=== PATIENT | female | born 2000 | race Asian ===

== ENCOUNTER 2024-07-01 00:06 | Emergency (ER) | payer BC, SELFPAY ==
--- OUTSIDE RECORDS SUMMARY | 2024-07-01 00:09 | XMS_ITS | Clinical Summary ---
Author Organization [facility] Address [address] [place] [address] Care Team Providers Care Manager Membership Name Role Phone Dedra Miller PA-C Primary Care Provider [phone] Source Comments You are receiving this document as you are listed as the primary care provider,follow-up provider, or the patient has been referred to you for consultation.This is in compliance with the Medicare and[facility] E[facility] Incentive Program,which states Providers who transition their patient to another setting of careor provider of care or refers their patient to another provider of care shouldprovide summary care record for each transition of care or referral. [facility] Allergies Active Allergy Reactions Criticality Noted Date Comments Swain Flavoring Agent (Non-Screening) Hives High 10/13/2018 Medications CALCIUM-MAGNESIUM OR Active intra-uterine copper contraceptive ([id number]) deviceIndications :Encounter for insertion of intrauterine contraceptive device 1 Device by Intrauterine route continuous. 1 Each 10/10/19 22 032 Active Multiple Vitamin (MULTI VITAMIN) TABS 1 tablet Orally Once a day for 30 day(s) Active cholecalciferol (VITAMIN D3) 1.25 MG (55707 UT) capsuleIndication s:Vitamin D deficiency (HRC) Take 1 Capsule (50,000 Units) by mouth once every week. 4 Capsule 03/05/20 23 Active Active Problems Problem Noted Date Diagnosed Date Adopted 02/02/2023 Encounter for insertion of i ntrauterine contraceptive device 10/09/2021 Overview (10/09/2021): Paragard placed 10/09/2021 Anxiety 08/29/2021 Wears contact lenses 10/13/2018 Immunizations Immunization Administration Dates Next Due 9vHPV (Gardasil 9) 01/11/2016,12/19/2014 Bexsero (Meningococcal Group B Vaccine) 10/08/2020,09/06/2020 DTaP 01/13/2007, 4,07/12/2003,2003,01/18/2003 Flu Vac (3+ yrs) 01/16/2006 Flu Vac (6-35 mo) 08/14/2005 Flu Vac Preserv Free (3+yrs) 12/25/2011, 12/26/2010,12/14/2009,2008,01/13/2008,01/07/2007 [id number] 03/29/2009 HepA Ped/Adol (1-18 yrs) 01/13/2007,08/14/2005 Hib (ActHIB) 04/12/2003 Hib, Unspecified Formulation 04/12/2003 Hib/HBV 07/12/2003, 4,2002,2001 IPV (Polio) 01/13/2007, 4,04/12/2003,2002 Influenza (Flucelvax) 12/30/2021,11/29/2020 Influenza (Flucelvax), Prese rv Free QIV 11/29/2022,09/05/2005 Influenza IIV4 (Quadrivalent ) 0.5mL (24310) 12/21/2019,01/18/2018,01/19/2017,2015,12/19/2014,12/23/2013,12/24/2012 Influenza LAIV (Nasal, 2-49 yrs) 12/23/2013,12/07 MCV4 Menveo 2m.+ (two vial) 01/18/2018, 4 MMR 08/14/2005,01/18/2003 Moderna Bivalent 12+ 11/20/2021 Moderna Monovalent 12+ 02/12/2021,07/16/2020,02/2021 PCV13 (Prevnar) 04/12/2003,01/18/2003 Pneumococcal 7, PED 04/12/2003,01/18/2003 TB Skin Test (PPD) 09/04/2020 TDAP (BOOSTRIX) 12/24/2012 Tdap 02/02/2023 Typhoid (Typhim Vi, IM) 09/16/2005 Typhoid, Unspecified Formulation 09/16/2005 Varicella 01/13/2007,02/06/2004 Social History Tobacco Use Types Packs/Day Years Used Date Smoking Tobacco: Never Smokeless Tobacco: Never Tobacco Cessation:Counseling Given: Not Answered Alcohol Use Standard Drinks/Week Comments Yes 0 (1 standard drink = 0.6 oz pur e alcohol) AUDIT-C Answer Date Recorded Frequency of Alcohol Consumption Never 10/13/2018 Average Number of Drinks Not on file 019 Frequency of Binge Drinking Not on file 09/2018 PHQ-2 Answer Date Recorded PHQ-2 Score 2 02/02/2023 Financial Resource Strain Answer Date R ecorded Is it hard for you to pay fo r the very basics like food, housing, medical care or heating? No 02/02/2023 Food Insecurity Answer Date Recorded Does your food run out before you have the money to buy more? No 02/02/2023 Transportation Needs Answer Date Record ed Does a lack of transportatio n keep you from your medical appointments or from getting your medications? No 023 Comments No Sex and Gender Information Value Date Recorded Sex Assigned at Not on file Legal Sex Female 5:51 AM CDT Gender Identity Not on file Sexual Orientation Not on file Last Filed Vital Signs Vital Sign Reading Time Taken Comments Blood Pressure 123/75 02/02/2023 10:41 AM DIRECTOR PHYSICAL Pulse 71 02/02/2023 10:41 AM DIRECTOR PHYSICAL Temperature 37.1 C (98.8 F) 10/13/2018 1:19 PM CDT Respiratory Rate - - Oxygen Saturation - - Inhaled Oxygen Concentration - - Weight 59 kg (130 lb) 03/04/2023 12:29 PM DIRECTOR PHYSICAL pt reported Height 160 cm (5' 3) 02/02/2023 10:41 AM DIRECTOR PHYSICAL Body Mass Index 23.03 02/02/2023 10:41 AM DIRECTOR PHYSICAL Plan of Treatment Health Maintenance Due Date Last Done Comments Cervical Cancer Screening Due 2002 Hep C Screening (Preventive Services) 2002 Tuberculosis Screening 2002 Hep B Screening ([employer]) 2003 COVID-19 Vaccine ( season) 2023 11/20/2021, 02/12/2021, 07/16/2020, Additional history exists Influenza Vaccine (#1) 2023 , 12/30/2021, 11/29/2020, Additional history exists Adult Preventive Visit 02/03/2024 02/02/2023, 2018 Chlamydia 02/03/2024 02/02/2023, 10/09/2021 DTaP/Tdap/Td Vaccine (8 - Tdap) 02/02/2033 02/02/2023, 12/24/2012, 01/13/2007, Additional history exists Zoster/Shingles Vaccine (1 of 2) 01/09/2052 Pneumococcal Vaccine Aged Out 04/12/2003, 04/12/2003, 01/18/2003, Additional history exists No longer eligible based on patient's age to complete this topic HepB Vaccine Completed 07/12/2003, 07/2003, 2002, Additional history exists Hib Vaccine Completed 07/12/2003, 07/2003, 04/12/2003, Additional history exists HepA Vaccine Completed 01/13/2007, 08/14/2005 IPV (Polio) Vaccine Completed 01/13/2007, 02/06/2004, 04/12/2003, Additional history exists Varicella Vaccine Completed 01/13/2007, 02/06/2004 HPV Vaccine Completed 01/11/2016, 12/19/2014 MCV4 Vaccine Completed 01/18/2018, 12/23/2013 Meningococcal B Vaccine Completed 10/08/2020, 09/06 HIV Screening (Preventive Services) Completed 02/02/2023 Procedures Procedure Name Priority Date/Time Associated Diagnosis Comments CHLAMYDIA & GC, URINE (14 YEARS AND OLDER) Routine 02/02/2023 11:35 AM DIRECTOR PHYSICAL Routine screening for STI (sexually transmitted infection) HIV 1/2 AG/AB 4TH GEN Routine 02/02/2023 11:13 AM DIRECTOR PHYSICAL Screening for HIV (human immunodeficiency virus) from Last 3 Months or Most Recently Relevant to Health Maintenance Results * Chlamydia & GC, Urine (14 Years and Older) (02/02/2023 11:35 AM DIRECTOR PHYSICAL) Chlamydia Trachomatis STD Not Detected Not Detected 02/02/2023 9:04 PM DIRECTOR PHYSICAL [facility] N. gonorrhoeae STD Not Detected Not Detected 02/02/2023 9:04 PM DIRECTOR PHYSICAL [facility] Urine STD (Urine for STD) Non-blood Collection / Unknown 02/02/2023 11:35 AM DIRECTOR PHYSICAL 02/02/2023 11:49 AM DIRECTOR PHYSICAL Narrative [facility] - 02/02/2023 9:04 PM DIRECTOR PHYSICAL Test performed by [employer] (TMA). Wendi Venegas MD LAB_1 Final Result [facility] [address] [phone] * HIV 1/2 Ag/Ab 4th Generation (02/02/2023 11:13 AM DIRECTOR PHYSICAL) Pathologist [facility] HIV 1/2 Antigen/Antib felipe (4th generation) Negative (Non Reactive) Negative (Non Reactive) 02/02/2023 1:35 PM DIRECTOR PHYSICAL [facility] Comment:HIV-1 p24 Antigen an d HIV-1/HIV-2 Antibody not detected Blood Venipuncture / Unknown 02/02/2023 11:13 AM DIRECTOR PHYSICAL 02/02/2023 11:15 AM DIRECTOR PHYSICAL Wendi Venegas MD LAB_1 Final Result [facility] [address] from Last 3 Months or Most Recently Relevant to Health Maintenance Insurance [address] [place] [address] [employer] [place] [address] [place] [address] [facility] Safe Communications[place] [address] [place] [address] Care Teams Manager Membership Relationship Specialty Start Date End Date Dedra Miller PA-C [address] [place] [address] PCP - General Physician Training And Development Coordinator 02/02/23
--- OUTSIDE RECORDS SUMMARY | 2024-07-01 00:09 | XMS_ITS | Encounter Summary ---
Author Organization [facility] Address [address] [place] [address] Care Team Providers Care Qc Analyst Name Role Phone Dedra Miller PA-C Primary Care Provider [phone] Encounter Details Date Type Department Care Team (Late st Contact Info) Description 01/26/2019 Correspondence [facility] [address] [place] [address] Harriet Mckeon MD [employer]IFY[employer] MEDICAL ELIGIBILITY [employer]M Social History Tobacco Use Types Packs/Day Years Used Date Smoking Tobacco: Never Smokeless Tobacco: Never Alcohol Use Standard Drinks/Week Comments Never 0 (1 standard drink = 0.6 oz pur e alcohol) AUDIT-C Answer Date Recorded Frequency of Alcohol Consumption Never 10/13/2018 Average Number of Drinks Not on file 019 Frequency of Binge Drinking Not on file 09/2018 Comments No Sex and Gender Information Value Date Recorded Sex Assigned at Not on file Legal Sex Female 5:51 AM CDT Gender Identity Not on file Sexual Orientation Not on file documented as of this encounter Plan of Treatment Not on file documented as of this encounter Visit Diagnoses Not on filedocumented in this encounter Care Teams Qc Analyst Relationship Specialty Start Date End Date Dedra Miller PA-C [address] [place] [address] PCP - General Physician Design Assembler 02/02/23 documented as of this encounter
[2024-07-01 00:13] VITALS: BP 134/78; PULSE 73; RESP 18; TEMP 36.7; O2SAT 99; BMI 23.9
--- NOTE | 2024-07-01 00:24 | ED.GENADULT ---
HPI - General Adult General Date Seen: 07/01/24 <Edith Spencer MD - Last Filed: 07/19/24 20:05> Chief complaint: Unspecified Complaint, Adult <Edith Spencer MD - Last Filed: 07/19/24 20:05> Stated complaint: Dizziness, confusion, tired <Edith Spencer MD - Last Filed: 07/19/24 20:05> Time Seen by Provider: 07/01/24 00:16 <Edith Spencer MD - Last Filed: 07/19/24 20:05> History of Present Illness HPI narrative: Patient is a 24-year-old [employer] student who comes to the ER [facility] with a friend saying she just feels weird. She says for the past week and half she has just felt off, sometimes she is feels tired, to the point that she just has to sit down for 20 seconds. Sometimes she feels cold, sometimes she feels hungry even though she feels like she is eating enough. She feels confused sometimes, like right now she feels like maybe she is not making sense. Right now, her most salient symptom is that she feels cold. No fevers, no vomiting or diarrhea, no rashes, no other viral symptoms, no significant weight loss, no other complaints. She says she went to the [place] [facility] and they told her to eat more. She does not really have a doctor as she aged out of her rn intensive care unit and has not established with anyone else. She is from [place]. General health is good, she denies any substance use. No medications. <Edith Spencer MD - Last Filed: 07/19/24 20:05> Related Data Home medications: Home Medications ?Medication ?Instructions ?Recorded ?Confirmed No Known Home Medications 07/01/24 07/01/24 <Edith Spencer MD - Last Filed: 07/19/24 20:05> Allergies/adverse reactions: Allergies Allergy/AdvReac Type Severity Reaction Status Date / Time No Known Drug Allergies Allergy Verified 07/01/24 00:15 <Edith Spencer MD - Last Filed: 07/19/24 20:05> Review of Systems Status of ROS: Reports: 10 or more systems reviewed and unremarkable except as noted in History and below <Edith Spencer MD - Last Filed: 07/19/24 20:05> [facility] Medical History: Medical History Depression ?F32.A - Depression, unspecified (ICD-10) <Edith Spencer MD - Last Filed: 07/19/24 20:05> Surgical History: Surgical History No significant past surgical history <Edith Spencer MD - Last Filed: 07/19/24 20:05> Social History: Social History Smoking Status: Never smoker Second hand tobacco smoke exposure: No How often do you have a drink containing alcohol: never AUDIT-C Alcohol total score: 0 Non-prescribed substance use: denies use <Edith Spencer MD - Last Filed: 07/19/24 20:05> Exam Narrative: Exam Narrative: Vital signs reviewed In general, alert, nontoxic young woman. Head: Normocephalic, atraumatic. Eyes: Sclera clear. Pupils equal and reactive. ENT: Mucous membranes moist. Neck: Supple without adenopathy. Heart: Regular rate and rhythm without murmur. Lungs: Clear. No increased work of breathing, crackles or wheezes. Abdomen: Soft, nontender to palpation. Extremities: Well perfused, pulses intact. No significant edema. Neurologic: Alert, conversant. Speech fluent, face symmetric. Moves all extremities equally. She is oriented x3. Skin: Warm, dry well perfused. Affect: Normal. <Edith Spencer MD - Last Filed: 07/19/24 20:05> Const: Vital Signs, click to edit/add: Vital Signs - 24 hr 07/01/24 00:13 07/01/24 01:25 07/01/24 01:26 Temperature 98.1 F 98.1 F 98.1 F Pulse Rate [Right Pulse Oximeter] 73 79 79 Respiratory Rate 18 18 18 Blood Pressure [Ri ght Upper Arm] 134/78 125/70 125/70 Pulse Oximetry 99 99 Oxygen Delivery Me thod Room Air Room Air <Edith Spencer MD - Last Filed: 07/19/24 20:05> Vital Signs, click to edit/add: Vital Signs - 24 hr 07/01/24 00:13 07/01/24 01:25 07/01/24 01:26 Temperature 98.1 F 98.1 F 98.1 F Pulse Rate [Right Pulse Oximeter] 73 79 79 Respiratory Rate 18 18 18 Blood Pressure [Ri ght Upper Arm] 134/78 125/70 125/70 Pulse Oximetry 99 99 Oxygen Delivery Me thod Room Air Room Air <Edith Haskins MD - Last Filed: 07/01/24 04:31> Course Course ED Course: Advised her that we can check some basic baseline labs here including blood counts, electrolytes, liver function, thyroid function. Her symptoms are somewhat vague, and I suspect these tests may be normal. In this case, I would recommend that she establish with a primary care doctor outside the [place] system. Labs are reviewed and normal. TSH is still pending, discussed with her that I would recommend discharge and if this is abnormal we can call her. Otherwise, no findings to explain her symptoms tonight. Outpatient follow up as discussed. Return for new or worsening symptoms. <Edith Spencer MD - Last Filed: 07/19/24 20:05> Vital Signs Vital signs: Initial Vital Signs Temperature 98.1 F 07/01/24 00:13 Temperature Source Temporal Artery Scan 07/01/24 00:13 Pulse Rate 73 07/01/24 00:13 Respiratory Rate 18 07/01/24 00:13 Blood Pressure 134/78 07/01/24 00:13 Blood Pressure Mean 96 07/01/24 00:13 Blood Pressure Position Sitting 07/01/24 00:13 Pulse Oximetry 99 07/01/24 00:13 Oxygen Delivery Method Room Air 07/01/24 00:13 Vital Signs Temperature 98.1 F 07/01/24 00:13 Pulse Rate 73 07/01/24 00:13 Respiratory Rate 18 07/01/24 00:13 Blood Pressure 134/78 07/01/24 00:13 Pulse Oximetry 99 07/01/24 00:13 Oxygen Delivery Method Room Air 07/01/24 00:13 Temperature 98.1 F 07/01/24 01:26 Pulse Rate 79 07/01/24 01:26 Respiratory Rate 18 07/01/24 01:26 Blood Pressure 125/70 07/01/24 01:26 Pulse Oximetry 99 07/01/24 01:25 Oxygen Delivery Method Room Air 07/01/24 01:25 <Edith Spencer MD - Last Filed: 07/19/24 20:05> Initial Vital Signs Temperature 98.1 F 07/01/24 00:13 Temperature Source Temporal Artery Scan 07/01/24 00:13 Pulse Rate 73 07/01/24 00:13 Respiratory Rate 18 07/01/24 00:13 Blood Pressure 134/78 07/01/24 00:13 Blood Pressure Mean 96 07/01/24 00:13 Blood Pressure Position Sitting 07/01/24 00:13 Pulse Oximetry 99 07/01/24 00:13 Oxygen Delivery Method Room Air 07/01/24 00:13 Vital Signs Temperature 98.1 F 07/01/24 00:13 Pulse Rate 73 07/01/24 00:13 Respiratory Rate 18 07/01/24 00:13 Blood Pressure 134/78 07/01/24 00:13 Pulse Oximetry 99 07/01/24 00:13 Oxygen Delivery Method Room Air 07/01/24 00:13 Temperature 98.1 F 07/01/24 01:26 Pulse Rate 79 07/01/24 01:26 Respiratory Rate 18 07/01/24 01:26 Blood Pressure 125/70 07/01/24 01:26 Pulse Oximetry 99 07/01/24 01:25 Oxygen Delivery Method Room Air 07/01/24 01:25 <Edith Haskins MD - Last Filed: 07/01/24 04:31> Medical Decision Making MDM Narrative Medical decision making narrative: I was asked to follow-up on TSH level on this patient by my colleague Dr. Spencer. TSH is normal. <Edith Haskins MD - Last Filed: 07/01/24 04:31> Lab Data Lab results reviewed: Yes I reviewed the patient's lab results <Edith Spencer MD - Last Filed: 07/19/24 20:05> Labs: Lab Results 07/01/24 07/01/24 Range/Units 00:23 00:33 WBC 6.29 (4.50-11.00) K/uL RBC 4.46 (4.00-5.20) m/uL Hgb 13.8 (12.0-16.0) gm/dL Hct 41.4 (33.0-51.0) % MCV 93 (80-100) fL MCH 31 (26-34) pg MCHC 33 (32-36) gm/dL RDW Coeff of Eugenio 11.2 L (11.5-15.5) % Plt Count 228 (140-440) K/uL Neut % (Auto) 46.8 (42.0-72.0) % Lymph % (Auto) 36.7 (20-44) % Dunn % (Auto) 12.2 H (0.0-11.0) % Eos % (Auto) 3.8 (0.0-7.0) % Baso % (Auto) 0.2 (0.0-3.0) % Neut # (Auto) 2.94 (1.7-7.0) K/uL Lymph # (Auto) 2.31 (0.90-2.90) K/uL Dunn # (Auto) 0.80 (0.00-0.90) K/UL Eos # (Auto) 0.24 (0.00-0.50) K/uL Baso # (Auto) 0.01 (0.00-0.30) K/uL Abs Immat Gran (auto) 0.02 (0.00-0.30) K/uL Imm/Tot Granulo (auto) 0.3 % Sodium 141 (135-149) mmol/L Potassium 3.8 (3.6-5.1) mmol/L Chloride 104 (96-114) mmol/L Carbon Dioxide 29 (20-32) mmol/L Anion Gap 8 (7-15) mEq/L BUN 13 (5-24) mg/dL Creatinine 0.7 (0.5-1.5) mg/dL Estimated Creat Clear 104.28 Estimated GFR 125 ml/min Glucose 101 (60-115) mg/dL Calcium 9.1 (8.4-10.6) mg/dL Total Bilirubin 0.2 (0.1-1.5) mg/dL AST 22 (12-35) U/L ALT 12 (4-35) U/L Alkaline Phosphatase 51 (40-150) U/L Total Protein 7.5 (6.0-8.3) g/dL Albumin 4.5 (3.3-5.0) g/dL TSH 4.010 (0.270-4.200) uIU/mL Urine Color Yellow (Yellow) Urine Appearance Clear (Clear) Urine pH 6.5 (5.0-8.5) Ur Specific Troy 1.025 (1.000-1.030) Urine Protein Negative (Negative) Urine Glucose (UA) Negative (Negative) Urine Ketones Negative (Negative) Urine Blood Negative (Negative) Urine Nitrite Negative (Negative) Urine Bilirubin Negative (Negative) Urine Urobilinogen 0.2 (0.2-1.0) Ur Leukocyte Esterase Negative (Negative) Urine RBC 0-2 (0-2) Urine WBC 0-2 (0-5) Ur Squamous Epith Cells None (None-Few) Urine Bacteria None (None) <Edith Spencer MD - Last Filed: 07/19/24 20:05> Lab Results 07/01/24 07/01/24 Range/Units 00:23 00:33 WBC 6.29 (4.50-11.00) K/uL RBC 4.46 (4.00-5.20) m/uL Hgb 13.8 (12.0-16.0) gm/dL Hct 41.4 (33.0-51.0) % MCV 93 (80-100) fL MCH 31 (26-34) pg MCHC 33 (32-36) gm/dL RDW Coeff of Eugenio 11.2 L (11.5-15.5) % Plt Count 228 (140-440) K/uL Neut % (Auto) 46.8 (42.0-72.0) % Lymph % (Auto) 36.7 (20-44) % Dunn % (Auto) 12.2 H (0.0-11.0) % Eos % (Auto) 3.8 (0.0-7.0) % Baso % (Auto) 0.2 (0.0-3.0) % Neut # (Auto) 2.94 (1.7-7.0) K/uL Lymph # (Auto) 2.31 (0.90-2.90) K/uL Dunn # (Auto) 0.80 (0.00-0.90) K/UL Eos # (Auto) 0.24 (0.00-0.50) K/uL Baso # (Auto) 0.01 (0.00-0.30) K/uL Abs Immat Gran (auto) 0.02 (0.00-0.30) K/uL Imm/Tot Granulo (auto) 0.3 % Sodium 141 (135-149) mmol/L Potassium 3.8 (3.6-5.1) mmol/L Chloride 104 (96-114) mmol/L Carbon Dioxide 29 (20-32) mmol/L Anion Gap 8 (7-15) mEq/L BUN 13 (5-24) mg/dL Creatinine 0.7 (0.5-1.5) mg/dL Estimated Creat Clear 104.28 Estimated GFR 125 ml/min Glucose 101 (60-115) mg/dL Calcium 9.1 (8.4-10.6) mg/dL Total Bilirubin 0.2 (0.1-1.5) mg/dL AST 22 (12-35) U/L ALT 12 (4-35) U/L Alkaline Phosphatase 51 (40-150) U/L Total Protein 7.5 (6.0-8.3) g/dL Albumin 4.5 (3.3-5.0) g/dL TSH 4.010 (0.270-4.200) uIU/mL Urine Color Yellow (Yellow) Urine Appearance Clear (Clear) Urine pH 6.5 (5.0-8.5) Ur Specific Troy 1.025 (1.000-1.030) Urine Protein Negative (Negative) Urine Glucose (UA) Negative (Negative) Urine Ketones Negative (Negative) Urine Blood Negative (Negative) Urine Nitrite Negative (Negative) Urine Bilirubin Negative (Negative) Urine Urobilinogen 0.2 (0.2-1.0) Ur Leukocyte Esterase Negative (Negative) Urine RBC 0-2 (0-2) Urine WBC 0-2 (0-5) Ur Squamous Epith Cells None (None-Few) Urine Bacteria None (None) <Edith Haskins MD - Last Filed: 07/01/24 04:31> Discharge Plan Discharge Clinical Impression: Malaise and fatigue <Edith Spencer MD - Last Filed: 07/19/24 20:05> Patient Disposition: Home, Self-Care <Edith Spencer MD - Last Filed: 07/19/24 20:05> Condition: Stable <Edith Spencer MD - Last Filed: 07/19/24 20:05> Instructions: Fatigue (ED) <Edith Spencer MD - Last Filed: 07/19/24 20:05> Additional Instructions: Recommend follow-up with a primary care clinic, either here at [facility], , or you could follow-up at the [facility]. If your thyroid test is abnormal, someone will touch base with you in the morning. Your other lab tests including blood counts, electrolytes, liver and kidney function are all normal. <Edith Spencer MD - Last Filed: 07/19/24 20:05> Prescriptions: No Action No Known Home Medications <Eidth Spencer MD - Last Filed: 07/19/24 20:05> Follow Up/Referrals: Provider,Not a Local [Primary Care Provider] - <Edith Spencer MD - Last Filed: 07/19/24 20:05> Stand Alone Forms: [facility] Info Instructions <Edith Spencer MD - Last Filed: 07/19/24 20:05>
[2024-07-01 00:39] LABS: Basophils Absolute Auto 0.01 K/uL (0.00-0.30); Basophils Percent Auto 0.2 % (0.0-3.0); Eosinophils Absolute Auto 0.24 K/uL (0.00-0.50); Eosinophils Percent Auto 3.8 % (0.0-7.0); Hematocrit 41.4 % (33.0-51.0); Hemoglobin* 13.8 gm/dL (12.0-16.0); Immature Granulocytes Abs Auto 0.02 K/uL (0.00-0.30); Immature Granulocytes Pct Auto 0.3 %; Lymphocytes Absolute Auto 2.31 K/uL (0.90-2.90); Lymphocytes Percent Auto 36.7 % (20-44); Mean Corpuscular HGB Conc 33 gm/dL (32-36); Mean Corpuscular Hemoglobin 31 pg (26-34); Mean Corpuscular Volume 93 fL (80-100); Monocytes Percent Auto 12.2 % (0.0-11.0); Neutrophils Absolute Auto 2.94 K/uL (1.7-7.0); Neutrophils Percent Auto 46.8 % (42.0-72.0); Platelet Count* 228 K/uL (140-440); RDW Coefficient of Variation % 11.2 % (11.5-15.5); Red Blood Count 4.46 m/uL (4.00-5.20); White Blood Count* 6.29 K/uL (4.50-11.00)
--- OUTSIDE RECORDS SUMMARY | 2024-07-01 00:43 | XMS_ITS | Clinical Summary ---
Author Organization [facility] Address [address] [place] [address] Care Team Providers Care Enamel Shader Name Role Phone Dedra Miller PA-C Primary Care Provider [phone] Source Comments You are receiving this document as you are listed as the primary care provider,follow-up provider, or the patient has been referred to you for consultation.This is in compliance with the Medicare and[facility] EHR Incentive Program,which states Providers who transition their patient to another setting of careor provider of care or refers their patient to another provider of care shouldprovide summary care record for each transition of care or referral. [facility] Allergies Active Allergy Reactions Criticality Noted Date Comments [place] Flavoring Agent (Non-Screening) Hives High 10/13/2018 Medications CALCIUM-MAGNESIUM OR Active intra-uterine copper contraceptive ([id number]) deviceIndications :Encounter for insertion of intrauterine contraceptive device 1 Device by Intrauterine route continuous. 1 Each 10/10/19 22 032 Active Multiple Vitamin (MULTI VITAMIN) TABS 1 tablet Orally Once a day for 30 day(s) Active cholecalciferol (VITAMIN D3) 1.25 MG (77578 UT) capsuleIndication s:Vitamin D deficiency (HRC) Take [...] Flu Vac Preserv Free (3+yrs) 12/25/2011, 12/26/2010,12/14/2009,2008,01/13/2008,01/07/2007 [id number] 03/29/2009 HepA Ped/Adol (1-18 yrs) 01/13/2007,08/14/2005 Hib (ActHIB) 04/12/2003 Hib, Unspecified Formulation 04/12/2003 Hib/HBV 07/12/2003, 4,2002,2001 IPV (Polio) 01/13/2007, 4,04/12/2003,2002 Influenza (Flucelvax) 12/30/2021,11/29/2020 Influenza (Flucelvax), Prese rv Free QIV 11/29/2022,09/05/2005 Influenza IIV4 (Quadrivalent ) 0.5mL (71263) 12/21/2019,01/18/2018,01/19/2017,2015,12/19/2014,12/23/2013,12/24/2012 Influenza LAIV (Nasal, 2-49 yrs) 12/23/2013,12/07 [...] Comments Blood Pressure 123/75 02/02/2023 10:41 AM LEGAL RECRUITER Pulse 71 02/02/2023 10:41 AM LEGAL RECRUITER Temperature 37.1 C (98.8 F) 10/13/2018 1:19 PM CDT Respiratory Rate - - Oxygen Saturation - - Inhaled Oxygen Concentration - - Weight 59 kg (130 lb) 03/04/2023 12:29 PM LEGAL RECRUITER pt reported Height 160 cm (5' 3) 02/02/2023 10:41 AM LEGAL RECRUITER Body Mass Index 23.03 02/02/2023 10:41 AM LEGAL RECRUITER Plan of Treatment Health Maintenance Due Date Last Done Comments Cervical Cancer Screening Due 2002 Hep C Screening (Preventive Services) 2002 Tuberculosis Screening 2002 Hep B Screening ([employer]) 2003 COVID-19 Vaccine ( season) 2023 [...] YEARS AND OLDER) Routine 02/02/2023 11:35 AM LEGAL RECRUITER Routine screening for STI (sexually transmitted infection) HIV 1/2 AG/AB 4TH GEN Routine 02/02/2023 11:13 AM LEGAL RECRUITER Screening for HIV (human immunodeficiency virus) from Last 3 Months or Most Recently Relevant to Health Maintenance Results * Chlamydia & GC, Urine (14 Years and Older) (02/02/2023 11:35 AM LEGAL RECRUITER) Chlamydia Trachomatis STD Not Detected Not Detected 02/02/2023 9:04 PM LEGAL RECRUITER [facility] N. gonorrhoeae STD Not Detected Not Detected 02/02/2023 9:04 PM LEGAL RECRUITER [facility] Urine STD (Urine for STD) Non-blood Collection / Unknown 02/02/2023 11:35 AM LEGAL RECRUITER 02/02/2023 11:49 AM LEGAL RECRUITER Narrative [facility] - 02/02/2023 9:04 PM LEGAL RECRUITER Test performed by Brake Repair Mechanic Mediated Amplification (TMA). Wendi Venegas MD LAB_1 Final Result [facility] [address] [phone] * HIV 1/2 Ag/Ab 4th Generation (02/02/2023 11:13 AM LEGAL RECRUITER) Pathologist [facility] HIV 1/2 Antigen/Antib felipe (4th generation) Negative (Non Reactive) Negative (Non Reactive) 02/02/2023 1:35 PM LEGAL RECRUITER [facility] Comment:HIV-1 p24 Antigen an d HIV-1/HIV-2 Antibody not detected Blood Venipuncture / Unknown 02/02/2023 11:13 AM LEGAL RECRUITER 02/02/2023 11:15 AM LEGAL RECRUITER Wendi Venegas MD LAB_1 Final Result [facility] [address] from Last 3 Months or Most Recently Relevant to Health Maintenance Insurance [address] [place] [address] [employer] [address] [facility] [employer] [address] [place] [address] Care Teams Enamel Shader Relationship Specialty Start Date End Date Dedra Miller PA-C [address] [place] [address] PCP - General Physician Cotton Breeder 02/02/23
--- OUTSIDE RECORDS SUMMARY | 2024-07-01 00:43 | XMS_ITS | Encounter Summary ---
Author Organization [facility] Address [address] [place] [address] Care Team Providers Care Cloth Stretcher Name Role Phone Dedra Miller PA-C Primary Care Provider [phone] Encounter Details Date Type Department Care Team (Late st Contact Info) Description 01/26/2019 Correspondence [facility] [address] [place] [address] Harriet Mckeon MD [facility] [...] on filedocumented in this encounter Care Teams Cloth Stretcher Relationship Specialty Start Date End Date Dedra Miller PA-C [address] [place] [address] PCP - General Physician Computational Physicist 02/02/23 documented as of this encounter
[2024-07-01 00:44] LABS: Appearance Urine Clear (Clear); Bilirubin Urine Negative (Negative); Blood Urine Negative (Negative); Color Urine Yellow (Yellow); Glucose Urine Negative (Negative); Ketones Urine Negative (Negative); Leukocyte Esterase Urine Negative (Negative); Nitrite Urine Negative (Negative); Protein Urine Negative (Negative); Specific Gravity Urine 1.025 (1.000-1.030); Urobilinogen Urine 0.2 (0.2-1.0); pH Urine 6.5 (5.0-8.5)
[2024-07-01 00:53] LABS: RBC Urine 0-2 (0-2); WBC Urine 0-2 (0-5)
[2024-07-01 01:10] LABS: Albumin* 4.5 g/dL (3.3-5.0); Chloride* 104 mmol/L (96-114)
[2024-07-01 01:11] LABS: Potassium* 3.8 mmol/L (3.6-5.1); Sodium* 141 mmol/L (135-149)
[2024-07-01 01:13] LABS: Alanine Aminotransferase* 12 U/L (4-35); Anion Gap 8 mEq/L (7-15); Aspartate Amino Transferase* 22 U/L (12-35); Bilirubin Total* 0.2 mg/dL (0.1-1.5); Blood Urea Nitrogen* 13 mg/dL (5-24); Carbon Dioxide* 29 mmol/L (20-32); Creatinine* 0.7 mg/dL (0.5-1.5); Est. Creatinine Clearance* 104.28; Estimated Glomerular Filt Rate 125 ml/min; Total Protein* 7.5 g/dL (6.0-8.3)
[2024-07-01 01:14] LABS: Alkaline Phosphatase* 51 U/L (40-150); Calcium* 9.1 mg/dL (8.4-10.6); Glucose* 101 mg/dL (60-115); Slide Review Reflex No
[2024-07-01 01:25] VITALS: BP 125/70; PULSE 79; RESP 18; TEMP 36.7; O2SAT 99
[2024-07-01 01:26] VITALS: BP 125/70; PULSE 79; RESP 18; TEMP 36.7
== END 2024-07-01 01:27 | disposition home or self-care (01) ==
PROVIDERS: Emergency Provider Emergency Medicine
DX: R53.83 Other fatigue (principal); R53.81 Other malaise
CPT/HCPCS: 36415; 80050; 80053; 81001; 84443; 85025; 99283; 99284